=== PATIENT | male | born 2000 | race Caucasian/White ===

== ENCOUNTER 2022-02-01 14:17 | Outpatient (REF) | payer MEDICAID, SELFPAY ==
[2022-02-03 13:07] LABS: COVID-19 RT-PCR UVMMC Result Negative (Negative)
== END 2022-02-01 14:18 | disposition home or self-care (01) ==
LOC: LBN 14:17
PROVIDERS: PCP Family Medicine; Visit Provider Physician Assistant Medical
DX: J02.9 Acute pharyngitis, unspecified (principal); Z20.822 Contact with and (suspected) exposure to COVID-19
CPT/HCPCS: U0003; 87081

== ENCOUNTER 2023-02-25 18:02 | Outpatient (REF) | payer OTHER, BC, SELFPAY | END 2023-02-25 18:03 | disposition home or self-care (01) | LOC: LBN 18:02 | PROVIDERS: PCP Family Medicine; Visit Provider Physician Assistant | DX: J02.9 Acute pharyngitis, unspecified (principal) | CPT/HCPCS: 87070 ==

== ENCOUNTER → 2023-02-25 19:00 | Outpatient (CLI) | payer OTHER, BC, SELFPAY ==
--- NOTE | 2023-02-25 12:15 | DI.RAD_ITS ---
Exam(s) XR FINGER LT INDEX EXAM: XR FINGER LT INDEX CLINICAL HISTORY: crush injury,T14.8XXA. TECHNIQUE: 2D digital imaging was performed. Three views. COMPARISON: None. FINDINGS: BONES: No acute fracture is present. No bony destructive lesion is seen. JOINTS: No dislocation present. SOFT TISSUE: Soft tissue swelling around index finger. IMPRESSION: Soft tissue swelling. No evidence of fracture. DATA REPOSITORY: RADIATION DOSE DELIVERED:
== END ==
PROVIDERS: PCP Family Medicine; Visit Provider Physician Assistant
DX: T14.8XXA Other injury of unspecified body region, initial encounter (principal); R22.32 Localized swelling, mass and lump, left upper limb
CPT/HCPCS: 73140

== ENCOUNTER 2023-08-04 18:05 | Outpatient (REF) | payer BC, SELFPAY ==
[2023-08-04 15:28] LABS: Abs Immature Grans 0.01 10^3/uL (0.0-0.06); Absolute Basophil Count 0.03 10^3/uL (0.0-0.2); Absolute Lymphocyte Count 1.44 10^3/uL (1.2-3.4); Absolute Monocyte Count 0.44 10^3/uL (0.1-0.8); Absolute Neutrophil Count 2.06 10^3/uL (1.2-6.7); Basophils % 0.7 %; Eosinophils % 2.5 %; HCT 48.6 % (40.0-50.0); HGB 17.1 g/dL (13.5-17.5); Immature Grans % 0.2 %; Lymphocytes % 35.3 %; MCH 29.4 pg (27.0-33.0); MCHC 35.2 % (32.0-36.0); MCV 84 fL (80-95); Monocytes % 10.8 %; Neutrophils % 50.5 %; Platelet Count 244 10^3/uL (130-400); RBC 5.82 10^6/uL (4.36-5.78); RDW 11.8 % (11.8-14.1); RDW-SD 35.4 fL; WBC 4.08 10^3/uL (4.4-10.8)
[2023-08-04 16:08] LABS: ALT 22 U/L (16-63); AST 14 U/L (15-37); Albumin 4.5 g/dL (3.4-5.0); Alkaline Phosphatase 58 U/L (46-116); Anion Gap 9.4 mmol/L (3-11); BUN 11 mg/dL (7-18); Bilirubin, Total 0.6 mg/dL (0.2-1.0); CO2 28.6 mmol/L (21.0-32.0); CREATININE 0.8 mg/dL (0.70-1.30); Calcium 9.7 mg/dL (8.5-10.1); Chloride 104 mmol/L (98-107); Estimated GFR 129.93 (mL/min/1.73m2); Glucose 93 mg/dL (74-106); Potassium 4.2 mmol/L (3.5-5.1); Sodium 142 mmol/L (136-145); TSH (W/Ref FT4) 1.97 uIU/mL (0.36-3.74); Total Protein 7.5 g/dL (6.4-8.2); Vitamin B12 376 pg/mL (193-986)
== END 2023-08-04 18:06 | disposition home or self-care (01) ==
LOC: NCHCN 18:05
PROVIDERS: PCP Family Medicine; Visit Provider Nurse Practitioner Family
DX: R53.83 Other fatigue (principal)
CPT/HCPCS: 80053; 82607; 84443; 85025

== ENCOUNTER 2023-10-16 14:50 | Outpatient (REF) | payer BC, SELFPAY | END 2023-10-16 14:51 | disposition home or self-care (01) | LOC: LBN 14:50 | PROVIDERS: PCP Family Medicine; Visit Provider Family Medicine | DX: J02.9 Acute pharyngitis, unspecified (principal); Z20.828 Contact with and (suspected) exposure to other viral communicable diseases; B34.9 Viral infection, unspecified | CPT/HCPCS: 87070 ==